=== PATIENT | male | born 1945 | race Caucasian/White ===

== ENCOUNTER 2022-09-11 17:58 | Emergency (ER) | payer MEDICARE ==
[~2022-09-11] VITALS: Ht 167.6 cm; Wt 86.2 kg
[2022-09-11 20:17] LABS: APPEARANCE,URINE CLEAR (CLEAR); BILIRUBIN,URINE NEGATIVE (NEGATIVE); COLOR,URINE LIGHT-YELLOW (YELLOW); GLUCOSE, URINE (UA) NEGATIVE (NEGATIVE); KETONES,URINE NEGATIVE (NEGATIVE); LEUKOCYTE ESTERASE ,URINE NEGATIVE Leu/uL (NEGATIVE); NITRATE,URINE NEGATIVE (NEGATIVE); OCCULT BLOOD,URINE NEGATIVE (NEGATIVE); PROTEIN,URINE NEGATIVE (NEGATIVE); UROBILINOGEN,URINE 0.2 mg/dL (0.2-1.0)
[2022-09-11 20:42] LABS: BASOPHILS % (AUTO) 0.4 % (0.0-5.0); HEMATOCRIT 38.5 % (42-54); LYMPHOCYTES % (AUTO) 2.6 % (21.0-51.0); MEAN CORPUSCULAR HEMOGLOBIN 29.1 pg (27.0-33.0); MEAN CORPUSCULAR VOLUME 88.3 fL (79-99); NEUTROPHILS % (AUTO) 91.6 % (40.0-77.0); PLATELET COUNT (AUTO) 154 K/uL (130-400); RED BLOOD CELL COUNT(AUTO) 4.36 MIL/uL (4.50-6.20); RED CELL DISTRIBUTION WIDTH 14.1 % (11.0-15.5); WHITE BLOOD COUNT (AUTO) 7.2 K/uL (4.8-10.8)
[2022-09-11 20:58] LABS: POTASSIUM 3.3 mmol/L (3.5-5.1); TOTAL PROTEIN, SERUM 6.7 g/dL (6.0-8.3)
[2022-09-12 06:32] VITALS: BP 149/81
== END 2022-09-12 06:55 | disposition home or self-care (01) ==
LOC: EDH 17:58
DX: G83.4 Cauda equina syndrome (principal); Z88.5 Allergy status to narcotic agent; W06.XXXA Fall from bed, initial encounter
CPT/HCPCS: 36415; 72131; 80053; 81003; 85025

== ENCOUNTER → 2024-08-10 | Outpatient (CLI) | payer MEDICARE | END | disposition home or self-care (01) | LOC: RAH 09:20 | PROVIDERS: ATTEND Internal Medicine Cardiovascular Disease | DX: R00.2 Palpitations (principal) | CPT/HCPCS: 93306 ==

== ENCOUNTER → 2025-06-04 | Outpatient (CLI) | payer MEDICARE ==
--- NOTE | 2025-06-04 23:23 | HMCIMG ---
EXAM: US Duplex Bilateral Carotid and Vertebral Arteries. CLINICAL HISTORY:atherosclerotic heart disease with syncope and collapse TECHNIQUE: Real-time ultrasound scan of the bilateral carotid and vertebral arteries, 2-D lassiter scale, with color Doppler flow and spectral waveform analysis. Note: Per PQRS, velocity criteria are extrapolated from diameter data as defined by the Society of Radiologists in Ultrasound Consensus Conference (Radiology 2003; 229; 340-346). COMPARISON: None provided. FINDINGS: RIGHT COMMON CAROTID ARTERY: Mild diffuse increased intimal-medial thickness is seen at the distal common carotid artery. No occlusion or significant stenosis. The peak systolic velocity of the common carotid artery is 90 cm/sec. RIGHT INTERNAL CAROTID ARTERY: Mild diffuse increased intimal-medial thickness is seen at the proximal part of the internal carotid artery. No occlusion or significant stenosis. The internal carotid artery peaks at a target velocity of 52 cm/sec. RIGHT EXTERNAL CAROTID ARTERY: No occlusion or significant stenosis. External carotid artery peak systolic velocity is 44 cm/sec . RIGHT VERTEBRAL ARTERY: Antegrade flow. Peak systolic velocity is 41 cm /sec. RIGHT ICA/CCA RATIO: Internal carotid artery to common carotid artery ratio is 0.6 . LEFT COMMON CAROTID ARTERY: Mild diffuse increased intimal-medial thickness is seen at the distal common carotid artery. No occlusion or significant stenosis. The peak systolic velocity of the common carotid artery is 48 cm/sec. LEFT INTERNAL CAROTID ARTERY: Mild diffuse increased intimal-medial thickness is seen at the proximal part of the internal carotid artery. No occlusion or significant stenosis. The internal carotid artery peaks at a target velocity of 100 cm /sec LEFT EXTERNAL CAROTID ARTERY: No occlusion or significant stenosis. External carotid artery peak systolic velocity is 57 cm /sec. LEFT VERTEBRAL ARTERY: Antegrade flow. Peak systolic velocity is 64 cm/sec. LEFT ICA/CCA RATIO: Internal carotid artery to common carotid artery ratio is 1.3 . SOFT TISSUES: No incidental abnormalities. IMPRESSION: 1. Mild diffuse increased intimal-medial thickness at the distal common carotid arteries and proximal internal carotid arteries bilaterally. 2. No hemodynamically significant stenosis by NASCET criteria. /Webb
--- NOTE | 2025-06-05 09:30 | HMCIMG ---
EXAM: CT Chest Without IV contrast. 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 COMPARISON: None provided. FINDINGS: LUNGS: No pulmonary infiltrate. Few parenchymal bands in the lingula, right middle, and both lower lobes of the lung. PLEURAL SPACES: No evidence of pneumothorax. No pleural effusion. HEART: Mildcardiomegaly. No significant pericardial effusion. Atherosclerotic vascular calcifications of the aorta and coronary arteries. LYMPH NODES: No lymphadenopathy is evident. UPPER ABDOMEN: A few hypodense areas in both lobes of the liver, the largest measuring approximately 12.5 x 12 cm in the right lobe of the liver, possibly cysts, advised USG correlation. Two hypodense areas in the right kidney, the largest measuring approximately 4.5 x 5 cm, possibly cysts, advised USG correlation. A few foci of calcification in the splenic parenchyma are consistent with old calcified granulomas. A calculus measuring approximately 1.6 cm in the gallbladder lumen BONES: Old mild central wedging of L1 vertebra with loss of disc height of approximately 40 to 50 percent. Degenerative changes in the spine, chronic Schmorl's nodules, visualized at multiple levels. Calcification in the intervertebral disc at the level of T7-T8 to T8-T9 and T9-T10 dated IMPRESSION: No pulmonary infiltrates or pleural effusions. Bibasilar atelectasis. Mild cardiomegaly. Atherosclerosis and coronary artery disease. Large hypodense lesion in the right hepatic lobe (12.5 x 12 cm) and right kidney (4.5 x 5 cm), possibly cysts. Ultrasound correlation advised. 1.6 cm gallbladder calculus. Old mild compression fracture of L1 vertebra with 40-50% loss of disc height. /Shaina
== END | disposition home or self-care (01) ==
LOC: RAH 10:19
PROVIDERS: ATTEND Internal Medicine Cardiovascular Disease
DX: J98.11 Atelectasis (principal); K80.20 Calculus of gallbladder without cholecystitis without obstruction; I25.10 Atherosclerotic heart disease of native coronary artery without angina pectoris; R55 Syncope and collapse; I65.23 Occlusion and stenosis of bilateral carotid arteries; R42 Dizziness and giddiness; I51.7 Cardiomegaly; K76.9 Liver disease, unspecified
CPT/HCPCS: 71250; 93880